=== PATIENT | female | born 1975 | race African-American/Black ===

== ENCOUNTER 2019-10-18 13:49 | Emergency (ER) | payer MEDICARE, MEDICAID ==
[~2019-10-18] VITALS: Ht 172.7 cm; Wt 135.0 kg
[~2019-10-18 13:49] MED LIST: CARB200T PO; KEPP500 PO
[2019-10-18 14:02] VITALS: BP 202/98
== END 2019-10-18 14:26 | disposition left against medical advice (07) ==
LOC: ER 13:49
DX: R56.9 Unspecified convulsions (principal)

== ENCOUNTER 2023-02-20 13:27 | Emergency (ER) | payer MEDICARE, MEDICAID ==
[~2023-02-20] VITALS: Ht 180.3 cm; Wt 150.0 kg
[2023-02-20] MEDS ORDERED: MORPHINE SULFATE 4 MG/ML CPJ (NOT FOR IM USE) IV STA (14:40)
[2023-02-20 14:58] LABS: BASOPHILS % 0.7 % (0.0-2.0); EOSINOPHILS % 3.7 % (0.0-5.0); HEMATOCRIT. 37.9 % (36.0-48.0); HEMOGLOBIN. 12.6 g/dL (12.0-16.0); LYMPHOCYTES % 27.8 % (20.0-50.0); MEAN CORPUSCULAR HEMOGLOBIN 29.4 pg (28.0-32.0); MEAN CORPUSCULAR VOLUME 88.1 fL (81.0-99.0); MEAN PLATELET VOLUME 8.3 fl (7.4-10.4); MONOCYTES % 9.5 % (2.0-8.0); NEUTROPHILS % 58.3 % (40.0-76.0); PLATELET 405 x1000/uL (130-400); RED CELL DISTRIBUTION WIDTH 14.9 % (11.6-14.6)
[2023-02-20 15:05] LABS: CHLORIDE 102 mEq/L (98-107)
[2023-02-20 15:09] LABS: PROTHROMBIN TIME 11.2 sec (9.6-11.0)
[2023-02-20 17:27] LABS: CLARITY URINE TURBID (CLEAR); COLOR URINE DARK YELLOW (YELLOW); KETONES URINE TRACE (NEGATIVE); LEUKOCYTE ESTERASE URINE 1+ (NEGATIVE); NITRITE URINE NEGATIVE (NEGATIVE); OCCULT BLOOD URINE NEGATIVE (NEGATIVE); PH URINE 5.5 (4.5-8.0); PROTEIN URINE 2+ (NEGATIVE); SPECIFIC GRAVITY URINE 1.049 (1.005-1.030)
[2023-02-20] MEDS ORDERED: MORPHINE SULFATE 4 MG/ML CPJ (NOT FOR IM USE) IV NR (17:30)
[2023-02-20] MEDS ORDERED: POLY119P3 PO ×3 (23:56→23:57)
[2023-02-20] MEDS ORDERED: NITR-87 MT (23:56)
[2023-02-21] MEDS ORDERED: IOHEXOL-350 100 ML BOTTLE ONE (00:18)
[2023-02-21 02:02] VITALS: BP 149/90
== END 2023-02-21 02:08 | disposition home or self-care (01) ==
LOC: ER 13:27
DX: K59.00 Constipation, unspecified (principal); I10 Essential (primary) hypertension; Z98.84 Bariatric surgery status; Z86.59 Personal history of other mental and behavioral disorders
CPT/HCPCS: 36415; 71045; 74177; 80053; 81003; 83690; 84484; 85025; 85610; 93005; 96374; 99285; J2270; Q9967